=== PATIENT | male | born 1990 | race Caucasian/White ===

== ENCOUNTER 2017-07-20 14:37 | Emergency (ER) | payer SELFPAY ==
[2017-07-20 15:37] VITALS: BMI 25.0
[2017-07-20 15:42] VITALS: BP 115/78; PULSE 100; RESP 20; TEMP 98.3; O2SAT 95
--- NOTE | 2017-07-20 17:38 | C.PDOC ---
History Of Present Illness 26 y/o male presents to the ED requesting heroin detox. Patient states his last use was this morning. He states he used to be in a suboxone program. Denies any physical complaints at this time. Chief Complaint (Nursing): Substance Abuse History Per: Patient History/Exam Limitations: no limitations Onset/Duration Of Symptoms: Hrs Current Symptoms Are (Timing): Still Present Suicide/Self Injury Attempted (Context): None Modifying Factor(s): Narcotics (heroin) Associated Symptoms: denies: Suicidal Thoughts, Suicidal Plan Involuntary Hold By: None Recent travel outside of the [place]: No Additional History Per: Patient Past Medical History Reviewed: Historical Data, Nursing Documentation, Vital Signs Vital Signs: Last Vital Signs Temp 98.3 F 07/20/17 15:37 Pulse 100 H 07/20/17 15:37 Resp 20 07/20/17 15:37 BP 115/78 07/20/17 15:37 Pulse Ox 95 07/20/17 17:39 - Medical History PMH: No Chronic Diseases Surgical History: Appendectomy Family History: States: Unknown Family Hx - Social History Hx Alcohol Use: No Hx Substance Use: Yes - Immunization History Hx Tetanus Toxoid Vaccination: No Hx Influenza Vaccination: No Hx Pneumococcal Vaccination: No Review Of Systems Psych: Positive for: Other (heroin detox ). Negative for: Suicidal ideation Physical Exam - Physical Exam Appears: Non-toxic, No Acute Distress Skin: Normal Color, Warm, Dry Head: Atraumatic, Normacephalic Eye(s): bilateral: Normal Inspection Oral Mucosa: Moist Neck: Supple Chest: Symmetrical, No Deformity, No Tenderness Cardiovascular: Rhythm Regular, No Murmur Respiratory: Normal Breath Sounds, No Rales, No Rhonchi, No Wheezing Extremity: Normal ROM, Capillary Refill (less than 2 seconds ) Neurological/Psych: Oriented x3, Normal Speech, Normal Cognition Gait: Steady ED Course And Treatment O2 Sat by Pulse Oximetry: 95 (on RA) Pulse Ox Interpretation: Normal Medical Decision Making Medical Decision Making: Progress: Motrin PO administered. Disposition - Disposition Referrals: [facility] [Outside] [facility] [Outside] Disposition: HOME/ ROUTINE Disposition Time: 17:10 Condition: GOOD Additional Instructions: Thank you for letting us take care of you today. The emergency medical care you received today was directed at your acute symptoms. If you were prescribed any medication, please fill it and take as directed. It may take several days for your symptoms to resolve. Return to the Emergency Department if your symptoms worsen, do not improve, or if you have any other problems. Please contact your doctor or call one of the physicians/clinics you have been referred to that are listed on the Patient Visit Information form that is included in your discharge packet. Bring any paperwork you were given at discharge with you along with any medications you are taking to your follow up visit. Our treatment cannot replace ongoing medical care by a primary care provider (PCP) outside of the emergency department. Thank you for allowing the [facility] team to be part of your care today. Follow up with your doctor in 3-4 days for re-evaluation and further management. Follow up with the detox list for inpatient care. Instructions: Narcotic Abuse (ED) Forms: [employer] (Latvian) - Clinical Impression Clinical Impression: Drug dependence, Drug abuse - Scribe Statement The provider has reviewed the documentation as recorded by the Scribe (Estella Bain) Provider Attestation: All medical record entries made by the Scribe were at my direction and personally dictated by me. I have reviewed the chart and agree that the record accurately reflects my personal performance of the history, physical exam, medical decision making, and the department course for this patient. I have also personally directed, reviewed, and agree with the discharge instructions and disposition.
== END 2017-07-20 17:28 | disposition home or self-care (01) ==
LOC: C.ER 14:37
DX: F19.20 Other psychoactive substance dependence, uncomplicated (principal)